=== PATIENT | male | born 1960 | race Caucasian/White ===

== ENCOUNTER 2017-02-22 21:40 | Emergency (ER) | payer OTHER ==
[~2017-02-22] VITALS: Ht 185.4 cm; Wt 103.5 kg
[2017-02-22 21:42] VITALS: TEMP 36.7; Ht 185.4 cm; Wt 103.5 kg
--- NOTE | 2017-02-22 22:07 | EMERGENCY ROOM VISIT NOTE ---
History Report prepared by Gregory: Darrion Luther Under the Supervision of: Francisco CamachoO. First contact with patient: 21:55 Chief Complaint: PENIS PAIN Stated Complaint: PENIS IS SWOLLEN,POSSIBLE ALLERGIC REACTION TO MED History of Present Illness The patient is a 56 year old male who presents to the Emergency Room with complaints of worsening swelling in his penis that her first noticed a few hours prior to arrival. The patient states that when her first awoke this morning he experienced "severe" pain in the right groin. At this point this pain has subsided. He notes that when he went to use the restroom this evening he noticed some unusual swelling over his penis, since he first noticed it, the swelling has worsened. He denies any urinary irregularities and has been voiding per usual. He claims that earlier this week he was experiencing some "jock itch" and had been applying Lotrimin. The patient takes an KENNEY inhibitor for hypertension and had his prescription filled last Thursday, 9 days prior to this visit. He states that the pills did not look the ones he had been taking for several years. He denies any other symptoms at this time. Source of History: patient Onset: A few hours prior to arrival Position: other (Genitourinary) Quality: other (Swelling) Timing: worsening Associated Symptoms: No urinary symptoms Review of Systems See HPI for pertinent positives and negatives. A total of ten systems were reviewed and were otherwise negative. Past Medical & Surgical Medical Problems: (1) History of kidney stones Family History Diabetes mellitus FH: cancer FH: heart disease Hypertension Kidney stones Social History Smoking Status: Never Smoker Drug Use: none Marital Status: Housing Status: lives with significant other Occupation Status: employed Current/Historical Medications Scheduled Losartan Potassium (Cozaar), 100 MG PO DAILY Multivitamin (Multivitamin), 1 TAB PO DAILY Physical Exam Vital Signs Date Time Temp Pulse Resp B/P Pulse Ox O2 Delivery O2 Flow Rate FiO2 02/22/17 21:42 36.7 98 18 164/109 98 Room Air Physical Exam GENERAL: Awake, alert, well-appearing, in no distress HENT: Normocephalic, atraumatic. Oropharynx unremarkable. EYES: Normal conjunctiva. Sclera non-icteric. NECK: Supple. No nuchal rigidity. FROM. No JVD. RESPIRATORY: Clear to auscultation. CARDIAC: Regular rate, normal rhythm. Extremities warm and well perfused. Pulses equal. ABDOMEN: Soft, non-distended. No tenderness to palpation. No rebound or guarding. No masses. RECTAL: Deferred. MUSCULOSKELETAL: Chest examination reveals no tenderness. The back is symmetrical on inspection without obvious abnormality. There is no CVA tenderness to palpation. No joint edema. LOWER EXTREMITIES: Calves are equal size bilaterally and non-tender. No edema. No discoloration. NEURO: Normal sensorium. No sensory or motor deficits noted. SKIN: No rash or jaundice noted. GENITOURINARY: There is right groin tenderness, suspect lymph nodes. There is no obvious hernia. There is edema present to the shaft of the penis, no erythema or drainage. The testicles are normal, no tenderness. Normal Cremasteric Reflex. Medical Decision & Procedures Medications Administered Medications (Trade) Dose Ordered Sig/Nichol Route Start Time Stop Time Status Last Admin Dose Admin Diphenhydramine HCl (Benadryl Cap) 25 mg NOW ONCE PO 02/22/17 22:15 02/22/17 22:16 DC 02/22/17 22:23 25 MG Prednisone (PredniSONE TAB) 60 mg STK-MED ONCE .ROUTE 02/22/17 22:17 02/22/17 22:18 DC 02/22/17 22:17 50 MG ED Course 2156: The patient was evaluated in room B3. A complete history and physical exam was performed. 2208: Ordered Prednisone 50 mg PO. 2214: Ordered Diphenhydramine 25 mg PO. 7: Ordered Prednisone 60 mg. Medical Decision Differential Diagnosis includes: Allergic Reaction, Localized Reaction, medication reaction. identified pill as losartan; will treat with benadryl and prednisone; likely localized swelling Impression Primary Impression: Penile swelling Scribe Attestation The scribe's documentation has been prepared under my direction and personally reviewed by me in its entirety. I confirm that the note above accurately reflects all work, treatment, procedures, and medical decision making performed by me. Departure Information Dispostion Home / Self-Care Prescriptions Prednisone (Prednisone) 50 Mg Tab 50 MG PO DAILY for 4 Days, TAB Prov: Ciro Cordon, DO 02/22/17 Referrals No Doctor, Assigned (PCP) Patient Instructions ED Allergic Reaction Local Other, [facility]
[2017-02-22] MEDS ORDERED: LOSA100T65 PO (22:34)
[2017-02-22] MEDS ORDERED: MULT-506 PO (22:34)
[2017-02-22] MEDS ORDERED: PRED50TA PO (22:36)
[2017-02-22 22:50] VITALS: BP 154/89; PULSE 89; O2SAT 99
== END 2017-02-22 22:50 | disposition home or self-care (01) ==
LOC: C.EDB 21:42
DX: N48.89 Other specified disorders of penis (principal); N50.89 Other specified disorders of the male genital organs; Z87.442 Personal history of urinary calculi; Z83.3 Family history of diabetes mellitus; Z80.9 Family history of malignant neoplasm, unspecified; Z82.49 Family history of ischemic heart disease and other diseases of the circulatory system; Z84.1 Family history of disorders of kidney and ureter